=== PATIENT | female | born 1945 | race Caucasian/White ===

== ENCOUNTER → 2017-07-30 | Outpatient (CLI) | payer MEDICARE, OTHER ==
[2016-07-22 11:56] VITALS: BP 129/77
[~2017-07-30] MED LIST: AMLO5TAB2 PO; HYDR-2758 PO; HYDR-971 PO; LEVO50TA5 PO; METH500T7 PO; OLME20TA19 PO; VENL75CA PO
[2017-07-30 08:49] LABS: BASO # 0.1 x10^3/uL (0.0-0.2); BASO % 2 % (0-3); EOS # 0.1 x10^3/uL (0.0-0.7); EOS % 2 % (0-3); HEMATOCRIT 41.2 % (36.0-47.0); LYMPH # 1.8 x10^3/uL (1.0-4.8); LYMPH % 32 % (24-48); MEAN CORPUSCULAR HEMOGLOBIN 30 pg (25-35); MEAN CORPUSCULAR HGB CONC 34 g/dL (31-37); MEAN CORPUSCULAR VOLUME 87 fL (79-100); MONO # 0.4 x10^3/uL (0.0-1.1); MONO % 8 % (0-9); NEUT # 3.1 x10^3uL (1.8-7.7); NEUT % 57 % (31-73); PLATELET COUNT 274 x10^3/uL (140-400); RED BLOOD COUNT 4.74 x10^6/uL (3.50-5.40); RED CELL DISTRIBUTION WIDTH 14.1 % (11.5-14.5); WHITE BLOOD COUNT 5.5 x10^3/uL (4.0-11.0)
--- NOTE | 2017-07-30 11:35 | RAD ---
DATE: 07/30/2017 EXAM: MAMMO ANA SCREENING BILATERAL HISTORY: Routine screening COMPARISON: 07/13/2015 This study was interpreted with the benefit of Computerized Aided Detection (CAD). The breast parenchyma is heterogeneously dense, which could reduce sensitivity of mammography. Breast parenchyma level C. FINDINGS: 2-D and 3-D tomosynthesis imaging was performed in CC and MLO projections. The fibroglandular tissues are heterogeneously in a somewhat nodular pattern. No new or enlarging breast densities are seen. Benign type calcifications are again noted. No suspicious microcalcifications have developed. IMPRESSION: Stable mammograms without evidence of malignancy. BI-RADS CATEGORY: 2 BENIGN FINDING(S) RECOMMENDED FOLLOW-UP: 12M 12 MONTH FOLLOW-UP PQRS compliance statement: Patient information was entered into a reminder system with a target due date for the next mammogram. Mammography is a sensitive method for finding small breast cancers, but it does not detect them all and is not a substitute for careful clinical examination. A negative mammogram does not negate a clinically suspicious finding and should not result in delay in biopsying a clinically suspicious abnormality. "Our facility is accredited by the [employer] Mammography Program."
[2017-07-30 12:34] LABS: ALBUMIN 3.7 g/dL (3.4-5.0); CALCIUM 9.1 mg/dL (8.5-10.1); CREATININE 1.1 mg/dL (0.6-1.0); POTASSIUM 3.8 mmol/L (3.5-5.1); TOTAL BILIRUBIN 0.4 mg/dL (0.2-1.0); TOTAL PROTEIN 7.4 g/dL (6.4-8.2)
[2017-07-30 15:17] LABS: FREE T4 1.08 ng/dL (0.76-1.46)
[2017-07-30 15:18] LABS: THYROID STIM HORMONE (TSH) 0.607 uIU/mL (0.358-3.740)
== END | disposition home or self-care (01) ==
LOC: MAMMO 07:47
PROVIDERS: ATTEND Physician Assistant Medical
DX: Z12.31 Encounter for screening mammogram for malignant neoplasm of breast (principal); Z00.01 Encounter for general adult medical examination with abnormal findings; E03.9 Hypothyroidism, unspecified; E55.9 Vitamin D deficiency, unspecified; I10 Essential (primary) hypertension
CPT/HCPCS: 36415; 77063; 80053; 80061; 82306; 82607; 84439; 84443; 84481; 85025; G0202; 77067

== ENCOUNTER 2020-09-25 14:03 | Emergency (ER) | payer MEDICARE, OTHER ==
[~2020-09-25] VITALS: Ht 170.2 cm; Wt 95.8 kg
[~2020-09-25 14:03] MED LIST changes: +AMLO-186 PO; -AMLO5TAB2 PO; +HYDR-2155 PO; -HYDR-2758 PO; +HYDR-3165 PO; -HYDR-971 PO; +OLME20TA17 PO; -OLME20TA19 PO
--- NOTE | 2020-09-25 14:39 | PHYS DOC ---
Past History Past Medical History: Hypertension, Hypothyroid Past Surgical History: Alcohol Use: None Drug Use: None Adult General Chief Complaint Chief Complaint: NAUSEA/VOMITING/DIARRHEA HPI HPI Patient is a 75-year-old female presents emergency department complaining of "it is mainly in my legs ". Patient states last night just after dinner she became nauseated and vomited up food particles x1. Patient states she went to bed feeling okay and denied abdominal pain. Patient states this morning shortly after she woke up from bed she felt a little nauseated and drank some lemon water. Patient states she vomited up her lemon water. Patient states she continued to feel nauseated throughout the day and decided she should come in to the emergency department to be seen. Patient states that she has some nausea, denies chest pain, shortness of breath, abdominal pain, diarrhea or constipation. Patient denies recent fever or chills. Patient denies loss of taste, loss of smell, denies headaches. Patient states that she feels generalized achiness in her legs. Patient denies any recent trauma to her lower extremities patient states she does not necessarily consider a pain, states "it just feels achy ". Patient states no one else living in her home is having the same symptoms that she had. Patient states she has not taken her morning medications because of her nausea and 1 bout of vomiting this morning, patient did not see any blood in her vomitus. Patient does states she is currently being treated for a urinary tract infection as she has had greater than 1 week, she is being closely followed by her primary care for provider CJ Garcia, patient states she is taking 1 Keflex daily for the past week and just recently refilled her prescription to continue on, patient does not know her medication dosage. Review of Systems Review of Systems 14 body systems of review of systems have been reviewed. See HPI for pertinent positives and negative responses, otherwise all other systems are negative, nonpertinent or noncontributory. Current Medications Current Medications Patient reports taking losartan, amlodipine, Effexor XR, 50 mcg of levothyroxine. Allergies Allergies Allergies Coded Allergies Type Severity Reaction Last Updated Verified Sulfa (Sulfonamide Antibiotics) Allergy Intermediate 07/20/16 Yes Physical Exam Physical Exam Constitutional: Well developed, well nourished, no acute distress, non-toxic appearance. Patient is in no apparent distress HENT: Normocephalic, atraumatic, bilateral external ears normal, oropharynx moist, no oral exudates, nose normal. Eyes: PERRLA, EOMI, conjunctiva normal, no discharge. Neck: Normal range of motion, no tenderness, supple, no stridor. Cardiovascular:Heart rate regular rhythm, no murmur Lungs & Thorax: Bilateral breath sounds clear to auscultation Abdomen: Bowel sounds normal, soft, no tenderness, no masses, no pulsatile masses. Skin: Warm, dry, no erythema, no rash. Back: No tenderness, no CVA tenderness. Extremities: No tenderness, no cyanosis, no clubbing, ROM intact, no edema. Neurologic: Alert and oriented X 3, normal motor function, normal sensory function, no focal deficits noted. Psychologic: Affect normal, judgement normal, mood normal. Current Patient Data Vital Signs Vital Signs Date Time Temp Pulse Resp B/P (MAP) Pulse Ox O2 Delivery O2 Flow Rate FiO2 09/25/20 14:03 98.1 120 24 132/86 (101) 96 Room Air EKG EKG EKG performed at 1431 by house respiratory therapy staff, sinus tachycardia without other ectopy, heart rate 103 bpm, LA interval 0.180, QTc interval 0.513, no acute STEMI, no ACS, no acute ischemia appreciated, EKG interpreted by ED attending physician Dr. Reeves Radiology/Procedures Radiology/Procedures PATIENT: MARILU BARRY AACCOUNT: [id number] : 1945 LOCATION: ER AGE: 75 SEX: F EXAM STATUS: REG ER ORD. PHYSICIAN: MELANIE SCOTT APRN REASON: TACHYCARDIA, NAUSEA, VOMITING PROCEDURE: CHEST PA & LATERAL Exam performed: 2 views of the chest. Indication: Reason: TACHYCARDIA, NAUSEA, VOMITING / Spl. Instructions: / History: Date of Service: 09/25/2020 2:45 PM . Comparison : None available. Findings: PA and lateral radiographs of the chest reveals mild cardiomegaly an ectatic tortuous aorta. The lungs are clear. No pleural fluid is seen. The visualized osseous structures are unremarkable. Impression: Mild cardiomegaly. No acute pulmonary findings seen. Electronically signed by: Demetria Hernandez MD (09/25/2020 3:07 PM) [facility] DICTATED AND SIGNED BY: DEMETRIA HERNANDEZ MD DATE: 09/25/20 5003 CC: MELANIE SCOTT APRN; LIANNA GARCIA ~MTH0 0 Heart Score HEART Score for Chest Pain: HEART Score for Chest Pain Response (Comments) Value History Slighlty/Non-Suspicious 0 ECG Normal 0 Age > 65 2 Risk Factors No Risk Factors 0 Troponin < Normal Limit 0 Total 2 Risk Factors: Risk Factors: DM, Current or recent (<one month) smoker, HTN, HLP, family history of CAD, obesity. Risk Scores: Risk Factors: DM, Current or recent (<one month) smoker, HTN, HLP, family history of CAD, obesity. Course & Med Decision Making Course & Med Decision Making Pertinent Labs and Imaging studies reviewed. (See chart for details) 75-year-old female, vital signs reviewed, presents emergency department with complaints of generalized bilateral leg aches, vomiting x1 yesterday, vomiting x1 this morning, and nausea. Physical examination was unremarkable, the patient is nontoxic in appearance. Suspicious for viral illness such as flu A/B or COVID-19. Patient denies recent contact with a known Covid 19 virus source. The patient is being treated by her primary care physician for a urinary tract i nfection, today's symptoms may be a sequela of her ongoing UTI. Upon initial triage, it was noted by ED nurse patient was in a tachycardia type rhythm of approximately 180 however patient heart rate spontaneously slowed to the 100-110 range. ED work-up: EKG, saline lock, 1000 cc normal saline, 4 mg IV Zofran, 650 mg p.o. Tylenol, rapid flu swab, CBC, CMP, troponin I, magnesium level, UA with culture and sensitivity if indicated, chest x-ray. Patient continued to have intermittent 20 to 25-second runs of SVT, patient had no physical symptoms during these cardiac events. Discussed case with ED attending Dr. Reeves who recommended I call [facility] Dr. Hernandez for admission to hospital. Called and discussed patient case with Dr. Hernandez who did not recommend admission to the hospital, and lieu of admission to the hospital Dr. Hernandez recommended the patient sees her home prescription medications MYRBETIQ and Macrobid, follow-up with CJ Garcia first thing tomorrow morning to have cardiology appointment with Dr. Romero and obtain a Holter or event monitor. Dr. Hernandez stated if the patient had any symptomatic events at home to have her call the sugar house supervisor at [facility] and he would directly admit her from home. Discussed conversation with Dr. Hernandez with ED attending Dr. Reeves who recommended I discuss case with on-call licensed staff mft. Spoke with on-call citizen participation specialist who recommended I give the patient 25 mg p.o. metoprolol, monitor for 1-1/2 hours, discharged home, his office will contact her at home first thing in the morning to set up for Holter event monitor, start patient on 25 mg metoprolol p.o. daily 30 days worth, he will consider extending prescription from there. Discussed Dr. Gaspar recommendations with ED attending Dr. Reeves who agreed with plan. Discussed discharge planning with patient who gave verbal understanding of discharge home instructions, call Dr. Hernandez if needed, DC Macrobid and Myrbetriq medication, strict return to ER for cautions and concerns, follow-up with her primary care provider Lianna Garcia first thing tomorrow morning. Patient had no runs of SVT during her last hour of observation in the ED, patient continued to be symptom-free and symptomatic free. Patient states she feels better and wants to go home now. Patient is discharged vital signs blood pressure 137/91, heart rate 82, respirations 16, oral temp 97.4. O2 sat room air 97%. Dragon Disclaimer Dragon Disclaimer This electronic medical record was generated, in whole or in part, using a voice recognition dictation system. Departure Departure: Impression: Primary Impression: Cardiac arrhythmia Additional Impressions: Leg pain Person under investigation for COVID-19 Nausea & vomiting Disposition: 01 DC HOME SELF CARE/HOMELESS Condition: IMPROVED Referrals: LIANNA GARCIA (PCP) Additional Instructions: I have prescribed you a new medication called metoprolol, please take 25 mg tablet metoprolol once a day until told otherwise by your primary care doctor or your licensed staff mft. Please stop taking your UTI antibiotic now Macrobid, please stop taking your bladder spasm medication Myrbetriq, if you have any symptoms of dizziness, passing out spells, chest pain, chest discomfort, shortness of breath, prior to calling Lianna Garcia tomorrow morning, please call the [facility] nursing power plant operators supervisor at area code [phone] tell her that Dr. Hernandez will direct admit you from home directly into the hospital. I have spoken to citizen participation specialist Dr. Gaspar who has taken down your telephone number and states his office will call you tomorrow morning to set up an appointment for a cardiac event monitor. Please return to the emergency room immediately for worsening symptoms or other concerns. Your COVID-19 test results should be available within the next 48 hours. EMERGENCY DEPARTMENT GENERAL DISCHARGE INSTRUCTIONS Thank you for coming to [facility] (ED) today and trusting us with you care. We trust that you had a positivie experience in our Emergency Department. If you wish to speak to the department management, you may call the director at [phone]. YOUR FOLLOW UP INSTRUCTIONS ARE FOLLOWS: 1. Do you have a private Doctor? If you do not have a private doctor, please ask for a resource list of physicians or clinics that may be able to assist you with follow up care. 2. The Emergency Physician has interpreted your x-rays. The X-Ray specialist will also review them. If there is a change in the findings, you will be notified in 48 hours when at all possible. 3. A lab test or culture has been done, your results will be reviewed and you will be notified if you need a change in treatment. ADDITIONAL INSTRUCTIONS AND INFORMATION: 1. Your care today has been supervised by a physician who is specially trained in emergency care. Many problems require more than one evaluation for a complete diagnosis and treatment. We recommend that you schedule your follow up appointment as recommended to ensure complete treatment of you illness or injury. If you are unable to obtain follow up care and continue to have a problem, or if your condition worsens, we recommend that you return to the ED. 2. We are not able to safely determine your condition over the phone nor are we able to give sound medical advice over the phone. For these safety reasons, if you call for medical advice we will ask you to come to the ED for further evaluation. 3. If you have any questions regarding these discharge instructions please call the ED at [phone]. SAFETY INFORMATION: In the interest of safety, wellness, and injury prevention; we encourage you to wear your sealbelt, if you smoke; quite smoking, and we encourage family to use a protective helmet for bicycling and other sporting events that present an increased risk for head injury. IF YOUR SYMPTOMS WORSEN OR NEW SYMPTOMS DEVELOP, OR YOU HAVE CONCERNS ABOUT YOUR CONDITION; OR IF YOUR CONDITION WORSENS WHILE YOU ARE WAITING FOR YOUR FOLLOW UP APPOI NTMENT; EITHER CONTACT YOUR PRIMARY CARE DOCTOR, THE PHYSICIAN WHOSE NAME AND NUMBER YOU WERE GIVEN, OR RETURN TO THE ED IMMEDIATELY. You have been tested for or diagnosed with COVID-19. It is an infection caused by a new type of coronavirus. COVID-19 will cause cold-like or mild flu symptoms in most. It can cause more severe symptoms like problems breathing in some. There is no treatment for COVID-19. The body will clear the infection over time. Self-care will help to ease discomfort. Steps to Take: Self-Care Rest as needed. Healthy habits may help you feel better. Steps include: Choose healthy foods including fruits and vegetables. Drink water throughout the day. Get plenty of sleep each night. If you smoke, try to quit. It may ease breathing. Avoid alcohol. Keep Others Healthy The virus can spread to others. Droplets are released every time you sneeze or cough. The droplets can get into the mouth, nose, or eyes of people near you and lead to infection. To lower the chances of spreading COVID-19 to others: Stay at home until your doctor has said it is safe to leave. If you tested positive this will mean staying isolated until both of the following are true: At least 7 days have passed since the start of illness. You are free of fever for at least 72 hours without the use of medicine. During this time: - Avoid public areas, events, or transportation. Do not return to work or school until your doctor has said it is safe to do so. - Call ahead if you need to go to a medical center. Let them know you may have COVID-19. It will help them guide you where to go. They may also ask you to wear a facemask when you come to the office. - If you call for emergency medical services, let them know you may have COVID- 19. While at home: - Try to avoid close contact with others. Stay about 6 feet away. - If possible, spend most of your time in a separate room from others. - Use a face mask if you will be in close contact with others such as sharing a room or vehicle. - Have someone wipe down common surfaces in the home. Use household decaler every day on areas like doorknobs, counters, or sinks. - Cough or sneeze into a tissue. Throw the tissue away right after use. If a tissue is not available, cough or sneeze into your elbow. - Wash your hands often. Wash them after sneezing or coughing. Use soap and water and wash for at least 20 seconds. Alcohol based hand mercury cell cleaner can be used if soap and water is not available. - Do not prepare food for others. Avoid sharing personal items like forks, spoo ns, or toothbrushes. - Avoid close contact with pets while you are sick. There is no evidence of the virus passing to pets. This is a safety step until more is known about this virus. Isolation can be frustrating. Social interaction can help. Keep in touch with friends and family through phone and tech options. You can still interact with others in your home, just keep a safe distance of about 6 feet. Follow-up: Your doctors office will check in with you to see if there are any changes in your health. You may be asked to keep track of symptoms to share with them. They will also let you know when you are clear to be in public again. Problems to Look Out For: Contact your doctor if your recovery is not going as you expect. Get emergency care if you have problems such as: - Trouble breathing - Nonstop chest pain or pressure - Changes in awareness, confusion, or problems waking - Lips or face have bluish color - Worsening of symptoms If you think you have an emergency, call for emergency medical services right away. As taken from [facility] Metoprolol Tartrate (METOPROLOL TARTRATE) 25 Mg Tablet 1 TAB PO DAILY for HEART RATE, #30 TAB 0 Refills Prov: MELANIE SCOTT EMAIL ENGINEER 09/25/20 Problem Qualifiers Primary Impression: Cardiac arrhythmia Arrhythmia type: unspecified cardiac arrhythmia Qualified Codes: I49.9 - Cardiac arrhythmia, unspecified Additional Impressions: Leg pain Laterality: bilateral Qualified Codes: M79.604 - Pain in right leg; M79.605 - Pain in left leg Nausea & vomiting Vomiting type: unspecified Vomiting Intractability: non-intractable Qualified Codes: R11.2 - Nausea with vomiting, unspecified MELANIE SCOTT EMAIL ENGINEER Sep 25, 2020 14:39
[2020-09-25] MEDS: IV NORMAL SALINE 1,000ML 1,000 ML IV ONE (14:47)
[2020-09-25] MEDS: ONDANSETRON PF 4 MG/2 ML VIAL. IVP ONE (14:47)
[2020-09-25] MEDS: ACETAMINOPHEN 325 MG TABLET PO ONE (14:48)
[2020-09-25] MEDS: KETOROLAC 15 MG/ML VIAL. IVP ONE (14:48)
[2020-09-25 15:01] LABS: BASO % 1 % (0-3); EOS % 1 % (0-3); HEMATOCRIT 39.7 % (36.0-47.0); HEMOGLOBIN 12.9 g/dL (12.0-15.5); LYMPH # 0.9 x10^3/uL (1.0-4.8); LYMPH % 15 % (24-48); MEAN CORPUSCULAR HEMOGLOBIN 28 pg (25-35); MEAN CORPUSCULAR HGB CONC 32 g/dL (31-37); MEAN CORPUSCULAR VOLUME 87 fL (79-100); MONO # 0.3 x10^3/uL (0.0-1.1); MONO % 6 % (0-9); NEUT # 4.5 x10^3uL (1.8-7.7); NEUT % 78 % (31-73); PLATELET COUNT 281 x10^3/uL (140-400); RED BLOOD COUNT 4.58 x10^6/uL (3.50-5.40); RED CELL DISTRIBUTION WIDTH 15.4 % (11.5-14.5); WHITE BLOOD COUNT 5.8 x10^3/uL (4.0-11.0)
[2020-09-25 15:08] LABS: CALCIUM 9.1 mg/dL (8.5-10.1); GFR 54.2; POTASSIUM 3.6 mmol/L (3.5-5.1)
--- NOTE | 2020-09-25 15:09 | RAD ---
Exam performed: 2 views of the chest. Indication: Reason: TACHYCARDIA, NAUSEA, VOMITING / Spl. Instructions: / History: Date of Service: 09/25/2020 2:45 PM . Comparison : None available. Findings: PA and lateral radiographs of the chest reveals mild cardiomegaly an ectatic tortuous aorta. The lung s are clear. No pleural fluid is seen. The visualized osseous structures are unremarkable. Impression: Mild cardiomegaly. No acute pulmonary findings seen. Electronically signed by: Demetria Hernandez MD (09/25/2020 3:07 PM) [facility]
--- NOTE | 2020-09-25 15:12 | EKG ---
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
[2020-09-25 15:14] LABS: ALBUMIN 3.7 g/dL (3.4-5.0); MAGNESIUM 1.9 mg/dL (1.8-2.4); TOTAL BILIRUBIN 0.4 mg/dL (0.2-1.0); TOTAL PROTEIN 7.5 g/dL (6.4-8.2)
[2020-09-25 16:16] LABS: INFLUENZA A PATIENT NEGATIVE (NEGATIVE); INFLUENZA B PATIENT NEGATIVE (NEGATIVE)
[2020-09-25 17:09] LABS: BACTERIA,URINE 0 /HPF (0-FEW); BILIRUBIN,URINE NEG (NEG); CLARITY,URINE HAZY; COLOR,URINE AMBER; GLUCOSE,URINE NEG (NEG); NITRITE,URINE NEG (NEG); SQUAMOUS EPITHELIAL CELL,UR MOD /LPF
[2020-09-25 17:17] VITALS: BP 149/104
[2020-09-25] MEDS: METOPROLOL TART IMMED RELEASE 25 MG TABLET. PO ONE (17:17)
[2020-09-25] MEDS ORDERED: METO25TA4 PO (19:05)
[2020-09-25] MEDS: ONDANSETRON 4MG ODT 4TABLET STARTPACK. PO ONE (19:19)
== END 2020-09-25 19:10 | disposition home or self-care (01) ==
LOC: ER 14:03
DX: I49.9 Cardiac arrhythmia, unspecified (principal); M79.604 Pain in right leg; M79.605 Pain in left leg; R11.2 Nausea with vomiting, unspecified; I10 Essential (primary) hypertension; E03.9 Hypothyroidism, unspecified; Z20.822 Contact with and (suspected) exposure to COVID-19; Z88.2 Allergy status to sulfonamides
CPT/HCPCS: 36415; 71046; 80053; 81001; 83735; 84484; 85025; 87804; 93005; 96361; 96374; 96375; 99285; C9803; J1885; J2405; J7030; Q0162; U0003

== ENCOUNTER → 2020-11-01 | Outpatient (CLI) | payer MEDICARE, OTHER ==
[~2020-11-01] MED LIST changes: +METH-559 PO; -METH500T7 PO; +METO25TA4 PO
[2020-11-01 12:07] LABS: CALCIUM 9.2 mg/dL (8.5-10.1); CREATININE 1.1 mg/dL (0.6-1.0); GFR 48.6; MAGNESIUM 2.1 mg/dL (1.8-2.4); POTASSIUM 4.3 mmol/L (3.5-5.1)
== END ==
LOC: LAB 10:49
PROVIDERS: ATTEND Internal Medicine Cardiovascular Disease
DX: I47.1 Supraventricular tachycardia (principal)
CPT/HCPCS: 36415; 80048; 83735; 84443

== ENCOUNTER → 2020-12-07 | Outpatient (CLI) | payer MEDICARE, OTHER ==
[2020-12-07 12:07] LABS: BASO # 0.1 x10^3/uL (0.0-0.2); BASO % 1 % (0-3); EOS # 0.1 x10^3/uL (0.0-0.7); EOS % 1 % (0-3); HEMATOCRIT 36.6 % (36.0-47.0); HEMOGLOBIN 11.9 g/dL (12.0-15.5); LYMPH # 0.9 x10^3/uL (1.0-4.8); LYMPH % 16 % (24-48); MEAN CORPUSCULAR HEMOGLOBIN 28 pg (25-35); MEAN CORPUSCULAR HGB CONC 33 g/dL (31-37); MEAN CORPUSCULAR VOLUME 86 fL (79-100); MONO # 0.5 x10^3/uL (0.0-1.1); MONO % 9 % (0-9); NEUT # 4.3 x10^3uL (1.8-7.7); NEUT % 73 % (31-73); PLATELET COUNT 340 x10^3/uL (140-400); RED BLOOD COUNT 4.26 x10^6/uL (3.50-5.40); RED CELL DISTRIBUTION WIDTH 14.1 % (11.5-14.5); WHITE BLOOD COUNT 5.9 x10^3/uL (4.0-11.0)
== END ==
LOC: LAB 10:56
PROVIDERS: ATTEND Internal Medicine Cardiovascular Disease
DX: D64.9 Anemia, unspecified (principal)
CPT/HCPCS: 36415; 85025

== ENCOUNTER 2021-02-19 12:39 | Emergency (ER) | payer MEDICARE, OTHER ==
[~2021-02-19] VITALS: Ht 170.2 cm; Wt 98.0 kg
[2021-02-19 12:47] VITALS: BP 118/68
[2021-02-19] MEDS ORDERED: NITR100C62 PO (13:25)
[2021-02-19] MEDS ORDERED: METH4TAB2 PO (13:25)
--- NOTE | 2021-02-19 13:26 | PHYS DOC ---
Past History Past Medical History: Hypertension, Hypothyroid (DIMAS LAY APRN) Past Surgical History: (DIMAS LAY APRN) Alcohol Use: None Drug Use: None (DIMAS LAY APRN) General Adult EDM: Chief Complaint: ALLERGIC REACTION HPI: HPI: Patient is a 75-year-old female who presents with itchy rash all over her body after taking Bactrim. Patient states "I am allergic to sulfa drugs". Patient's last dose was yesterday morning and started the prescription on the . Patient was prescribed Bactrim for a UTI. Patient denies shortness of breath. Patient is able to manage her own secretions. (DIMAS LAY APRN) Review of Systems: Review of Systems: Constitutional: Denies fever or chills Eyes: Denies change in visual acuity HENT: Denies nasal congestion or sore throat Respiratory: Denies cough or shortness of breath Cardiovascular: Denies chest pain or edema GI: Denies abdominal pain, nausea, vomiting, bloody stools or diarrhea : Denies dysuria Musculoskeletal: Denies back pain or joint pain Integument: Reports Red rash on arms, legs, back, torso Neurologic: Denies headache, focal weakness or sensory changes Endocrine: Denies polyuria or polydipsia Lymphatic: Denies swollen glands Psychiatric: Denies depression or anxiety (DIMAS LAY APRN) Current Medications: Current Meds: Current Medications Medications (Trade) Dose Ordered Sig/Dawson Start Time Stop Time Status Last Admin Dose Admin Dexamethasone Sodium Phosphate (Decadron) 10 mg 1X ONCE 02/19/21 13:15 02/19/21 13:16 UNV Diphenhydramine HCl (Benadryl) 25 mg 1X ONCE 02/19/21 13:15 02/19/21 13:16 UNV (DIMAS LAY APRN) Allergies: Allergies: Allergies Coded Allergies Type Severity Reaction Last Updated Verified Sulfa (Sulfonamide Antibiotics) Allergy Intermediate 07/20/16 Yes (DIMAS LAY APRN) Physical Exam: PE: Constitutional: Well developed, well nourished, no acute distress, non-toxic appearance. [] HENT: Normocephalic, atraumatic, bilateral external ears normal, oropharynx moist, no oral exudates, nose normal. [] Eyes: PERRLA, EOMI, conjunctiva normal, no discharge. [] Neck: Normal range of motion, no tenderness, supple, no stridor. [] Cardiovascular:Heart rate regular rhythm, no murmur [] Lungs & Thorax: Bilateral breath sounds clear to auscultation [] Abdomen: Bowel sounds normal, soft, no tenderness, no masses, no pulsatile masses. [] Skin: Red, rash arms, legs, back, abdomen Back: No tenderness, no CVA tenderness. [] Extremities: No tenderness, no cyanosis, no clubbing, ROM intact, no edema. [] Neurologic: Alert and oriented X 3, normal motor function, normal sensory f unction, no focal deficits noted. [] Psychologic: Affect normal, judgement normal, mood normal. [] (DIMAS LAY APRN) EKG: EKG: [] (DIMAS LAY APRN) Radiology/Procedures: Radiology/Procedures: [] (DIMAS LAY APRN) Heart Score: C/O Chest Pain: No Risk Factors: Risk Factors: DM, Current or recent (<one month) smoker, HTN, HLP, family history of CAD, obesity. Risk Scores: Score 0 - 3: 2.5% MACE over next 6 weeks - Discharge Home Score 4 - 6: 20.3% MACE over next 6 weeks - Admit for Clinical Observation Score 7 - 10: 72.7% MACE over next 6 weeks - Early Invasive Strategies (DIMAS LAY APRN) Course & Med Decision Making: Course & Med Decision Making Pertinent Labs and Imaging studies reviewed. (See chart for details) [] 74 female presents with an itchy, red rash all over her body after taking Bactrim for a UTI. Patient started antibiotic on 02/16. Last dose was yesterday morning. Patient has an allergy to sulfa drugs. Patient denies cough or shortness of breath. Patient is managing her own secretions. Patient given 25 mg of Benadryl p.o. and 10 mg of dexamethasone. Patient given a prescription for Macrobid to continue taking for UTI. Discussed with patient to stop taking Bactrim due to reaction. Patient to continue taking Benadryl at home to treat symptoms along with Medrol Dosepak. Patient given strict return precautions. Patient is appreciative and okay with discharge plan. (DIMAS LAY Disclaimer: Selvin Disclaimer: This electronic medical record was generated, in whole or in part, using a voice recognition dictation system. (DIMAS LAY APRN) Attending Co-Sign The patient was seen and interviewed as well as examined at the bedside. The chart was reviewed. The case was discussed. Agree with the plan of care. (JOSE JUAN DUNN DO) Departure Departure: Impression: Primary Impression: Allergic reaction Qualified Codes: T78.40XA - Allergy, unspecified, initial encounter Additional Impression: Rash Disposition: 01 HOME / SELF CARE / HOMELESS Condition: STABLE Referrals: MELVIN PEREZ (PCP) Patient Instructions: Rash, [id number] Additional Instructions: You were seen in the emergency room for an allergic reaction after taking Bactrim. You were given Benadryl and steroids in the emergency room. I am sending you home with a Medrol Dosepak. Continue taking Benadryl to treat itching and symptoms. Stop taking the antibiotic that was prescribed. I am sending you home with a prescription for Macrobid to treat your UTI. Stop taking the Bactrim. please return the emergency room if you have worsening symptoms or concerns. EMERGENCY DEPARTMENT GENERAL DISCHARGE INSTRUCTIONS Thank you for coming to [facility] (ED) today and trusting us with you care. We trust that you had a positivie experience in our Emergency Department. If you wish to speak to the department management, you may call the director at [phone]. YOUR FOLLOW UP INSTRUCTIONS ARE FOLLOWS: 1. Do you have a private Doctor? If you do not have a private doctor, please ask for a resource list of physicians or clinics that may be able to assist you with follow up care. 2. The Emergency Physician has interpreted your x-rays. The X-Ray specialist will also review them. If there is a change in the findings, you will be notified in 48 hours when at all possible. 3. A lab test or culture has been done, your results will be reviewed and you will be notified if you need a change in treatment. ADDITIONAL INSTRUCTIONS AND INFORMATION: 1. Your care today has been supervised by a physician who is specially trained in emergency care. Many problems require more than one evaluation for a complete diagnosis and treatment. We recommend that you schedule your follow up appointment as recommended to ensure complete treatment of you illness or injury. If you are unable to obtain follow up care and continue to have a problem, or if your condition worsens, we recommend that you return to the ED. 2. We are not able to safely determine your condition over the phone nor are we able to give sound medical advice over the phone. For these safety reasons, if you call for medical advice we will ask you to come to the ED for further evaluation. 3. If you have any questions regarding these discharge instructions please call the ED at [phone]. SAFETY INFORMATION: In the interest of safety, wellness, and injury prevention; we encourage you to wear your sealbelt, if you smoke; quite smoking, and we encourage family to use a protective helmet for bicycling and other sporting events that present an increased risk for head injury. IF YOUR SYMPTOMS WORSEN OR NEW SYMPTOMS DEVELOP, OR YOU HAVE CONCERNS ABOUT YOUR CONDITION; OR IF YOUR CONDITION WORSENS WHILE YOU ARE WAITING FOR YOUR FOLLOW UP APPOINTME NT; EITHER CONTACT YOUR PRIMARY CARE DOCTOR, THE PHYSICIAN WHOSE NAME AND NUMBER YOU WERE GIVEN, OR RETURN TO THE ED IMMEDIATELY. Scripts Nitrofurantoin Monohyd/M-Cryst (MACROBID 100 MG CAPSULE) 100 Mg Capsule 1 CAP PO BID for UTI for 7 Days, #14 CAP 0 Refills Prov: DIMAS LAY APRN 02/19/21 Methylprednisolone (MEDROL) 4 Mg Tab.ds.pk 1 PKG PO UD for inflammation for 6 Days, #1 PKG 0 Refills Prov: DIMAS LAY APRN 02/19/21 DIMAS LAY APRN Feb 19, 2021 13:26 JOSE JUAN DUNN DO Feb 21, 2021 09:11
[2021-02-19] MEDS ORDERED: DEXAMETHASONE 4 MG TABLET PO ONE (13:30)
[2021-02-19] MEDS ORDERED: diphenhydrAMINE HCL 25 MG CAPSULE PO ONE (13:30)
== END 2021-02-19 14:27 | disposition home or self-care (01) ==
LOC: ER 12:39
DX: R21 Rash and other nonspecific skin eruption (principal); T36.8X5A Adverse effect of other systemic antibiotics, initial encounter; Z88.2 Allergy status to sulfonamides; I10 Essential (primary) hypertension; E03.9 Hypothyroidism, unspecified; Z98.890 Other specified postprocedural states; Y92.89 Other specified places as the place of occurrence of the external cause
CPT/HCPCS: 99283; J8540; Q0163

== ENCOUNTER → 2021-07-03 | Outpatient (CLI) | payer MEDICARE, OTHER ==
[~2021-07-03] MED LIST changes: +METH4TAB2 PO; +NITR100C62 PO
[2021-07-03 12:59] LABS: BASO # 0.1 x10^3/uL (0.0-0.2); BASO % 2 % (0-3); EOS # 0.1 x10^3/uL (0.0-0.7); EOS % 1 % (0-3); HEMOGLOBIN 9.9 g/dL (12.0-15.5); LYMPH # 0.9 x10^3/uL (1.0-4.8); LYMPH % 19 % (24-48); MEAN CORPUSCULAR HEMOGLOBIN 25 pg (25-35); MEAN CORPUSCULAR HGB CONC 31 g/dL (31-37); MEAN CORPUSCULAR VOLUME 79 fL (79-100); MONO # 0.5 x10^3/uL (0.0-1.1); MONO % 10 % (0-9); NEUT # 3.3 x10^3uL (1.8-7.7); NEUT % 68 % (31-73); PLATELET COUNT 352 x10^3/uL (140-400); RED BLOOD COUNT 4.03 x10^6/uL (3.50-5.40); RED CELL DISTRIBUTION WIDTH 16.4 % (11.5-14.5); WHITE BLOOD COUNT 4.8 x10^3/uL (4.0-11.0)
== END ==
LOC: LAB 11:07
PROVIDERS: ATTEND Internal Medicine Cardiovascular Disease
DX: D64.9 Anemia, unspecified (principal)
CPT/HCPCS: 36415; 85025